=== PATIENT | male | born 1985 | race Caucasian/White ===

== ENCOUNTER 2024-12-02 20:02 | Emergency (ER) | payer OTHER, SELFPAY ==
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
[2024-12-02] VITALS (7 sets, daily range): BP systolic 162–185; BP diastolic 101–108; PULSE 120–133; RESP 18–28; TEMP 36.8–36.9; O2SAT 95–100; BMI 27.7
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
--- OUTSIDE RECORDS SUMMARY | 2024-12-02 20:15 | XMS_ITS | Encounter Summary ---
Author Organization [place] [address] Care Team Providers Care Cleaner And Presser Name Role Phone Augustus Hernandez MD Unavailable [phone] Augustus Hernandez MD Primary Care Provider [phone] Reason for Visit * Reason Onset Date Comments Refill 10/04/2024 omeprazole (PRIL OSEC) 20 mg Oral Capsule, Delayed Release(E.C.) Encounter Details Date Type Department Care Team (Late st Contact Info) Description 10/04/2024 Telephone [facility] [place] [address] [phone] Augustus Hernandez MD [facility] [place] [phone] Refill (omeprazole (PRILOSEC) 20 mg Oral Capsule, Delayed Release(E.C.)) Social History Tobacco Use Types Packs/Day Years [...] on file documented as of this encounter Functional Status * Is the person deaf or does he/she have serious difficulty hearing? Answer Date of Assessment Author No 07/01/2020 8:18 AM EDT Jordy Obrien, WAFER CUTTER * Is the person blind or does [...] Jordy Obrien CMA documented in this encounter Ordered Prescriptions Prescription Sig Dispense Quantity Refills Last Filled Start Date End Date omeprazole (PRILOSEC) 20 mg Oral Capsule, Delayed Release(E.C.) Take 1 Capsule by mouth daily. 90 Capsule 3 10/04/2024 documented in this encounter Miscellaneous Notes * Telephone Encounter - Salvatore Silva - 10/04/2024 9:54 AM EDT Select the most appropriate reason for this telephone message: Medication Refill Who is requesting the refill: Patient Medication(s)Name/Dosage/Frequency: Disp Refills Start End omeprazole (PRILOSEC) 20 mg Oral Capsule, Delayed Release(E.C.) 90 Capsule 3 07/30/2023 -- Sig: TAKE 1 CAPSULE BY MOUTH EVERY DAY Did patient contact the pharmacy first: No How many days left on hand: 2 Future appt date w/ prescribing provider: 10/25 Pharmacy & Location: [facility] Method of Communication: Phone Call Additional Information: N/A documented in this encounter Plan of Treatment Upcoming Encounters Date Type Department Care Team (Late st Contact Info) Description 12/25/2024 10:00 AM EDT Office Visit [facility] [address] [place] [address] [place] [place], [place] [phone] Augustus Hernandez MD [address] [place] [address] [place] [phone] documented as of this encounter Goals Goal Patient Goal Type Associated Problems Recent Progress Patient-Stated? Author Blood Pressure < 140/90 Blood Pressure 105/70(2024 12:54 PM EDT) No Ginny Malave, RMA Maintain a healthy diet, exercise regularly and maintain an ideal body weight General No Candice Wright documented as of this encounter Visit Diagnoses Not on filedocumented in this encounter Discontinued Medications Medication Sig Discontinue Reason Start Date End Da te omeprazole (PRILOSEC) 20 mg Oral Capsule, Delayed Release(E.C.) TAKE 1 CAPSULE BY MOUTH EVERY DAY Reorder 07/30/2023 10/04/2024 documented as of this encounter Care Teams Cleaner And Presser Relationship Specialty Start Date End Date Augustus Hernandez MD [address] [place] [address] [place] [phone] PCP - General Family Medicine 09/03/11 Augustus Hernandez MD [address] [place] [address] [place] [phone] Family Medicine 08/21/11 documented as of this encounter
--- OUTSIDE RECORDS SUMMARY | 2024-12-02 20:15 | XMS_ITS | Encounter Summary ---
Author Organization [place] [address] Care Team Providers Care Bail Bonding Agent Name Role Phone Augustus Hernandez MD Unavailable [phone] Augustus Hernandez MD Primary Care Provider [phone] Reason for Visit * Reason Onset Date Comments Results 10/26/2024 Seeking lab resu lts Other 10/26/2024 Urine culture re sults Encounter Details Date Type Department Care Team (Late st Contact Info) Description 10/26/2024 Telephone [facility] [address] [place] [phone] Augustus Hernandez MD [address] [place] [phone] Results (Seeking lab results ); Other (Urine culture results) Social History Tobacco Use Types Packs/Day Years [...] No 07/01/2020 8:18 AM EDT Jordy Obrien, POURER CRANE LADLE * Is the person blind or does he/she have serious difficulty seeing even when wearing glasses? Answer Date of Assessment Author No 07/01/2020 8:18 AM EDT Jordy Obrien, POURER CRANE LADLE * Does this person have serious difficulty walking or climbing stairs? Answer Date of Assessment Author No 07/01/2020 8:18 AM EDT Jordy Obrien POURER CRANE LADLE * Does this person have difficulty dressing or bathing? Answer Date of Assessment Author No 07/01/2020 8:18 AM EDT Jordy Obrien, POURER CRANE LADLE * Because of a physical, mental or emotional condition, does this person have difficulty doing errands alone such as visiting a doctor's office or shopping? Answer Date of Assessment Author No 07/01/2020 8:18 AM EDT Jordy Obrien, POURER CRANE LADLE documented as of this encounter Mental Status * Because of a physical, mental or emotional condition, does this person have serious difficulty concentrating, remembering or making decisions? Answer Entry Date Author No 07/01/2020 8:18 AM EDT Jordy Obrien, POURER CRANE LADLE documented in this encounter Miscellaneous Notes * Telephone Encounter - Sahara Blandon MA - 10/30/2024 3:00 PM EDT Please advise, thank you * Telephone Encounter - Candice Arambula MA - 10/30/2024 2:33 PM EDT Select the most appropriate reason for this telephone message: Other Who is calling (name & relationship to patient if not the patient): Patient What is needed OR why are they calling: Wanting to know if the final result is back? When is this needed by: today Where does this information need to go: Dr Hernandez Return Method of Communication: Phone Call Additional information:N/A * Telephone Encounter - Augustus Hernandez MD - 10/26/2024 1:04 PM EDT pending * Telephone Encounter - Meredith Houser RMA - 10/26/2024 11:48 AM EDT Please advise * Telephone Encounter - Georgiana Lange NICOLLE - 10/26/2024 11:47 AM EDT Select the most appropriate reason for this telephone message: Test Result(s) Purpose of call: Patient seeking results Type of test: Lab Date of test: 10/25/24 Who ordered the test: Dr Hernandez Where was test performed: [facility] Method of Communication: Phone Call Additional Information: N/A documented in this encounter Plan of Treatment Upcoming Encounters Date Type Department Care Team (Late st Contact Info) Description 12/25/2024 10:00 AM EDT Office Visit [facility] [address] [place] [address] [place] [phone] Augustus Hernandez MD [address] [place] [address] [place] [phone] documented as of this encounter Goals Goal Patient Goal Type Associated Problems Recent Progress Patient-Stated? Author Blood Pressure < 140/90 Blood Pressure 105/70(2024 12:54 PM EDT) No Ginny Malave RMA Maintain a healthy diet, exercise regularly and maintain an ideal body weight General No Candice Wright documented as of this encounter Visit Diagnoses Not on filedocumented in this encounter Care Teams Bail Bonding Agent Relationship Specialty Start Date End Date Augustus Hernandez MD [address] [place] [address] [place] [phone] PCP - General Family Medicine 09/03/11 Augustus Hernandez MD [address] [place] [address] [place] [phone] Family Medicine 08/21/11 documented as of this encounter
--- OUTSIDE RECORDS SUMMARY | 2024-12-02 20:15 | XMS_ITS | Encounter Summary ---
Author Organization [place] [address] Care Team Providers Care Bottom Crane Operator Name Role Phone Augustus Hernandez MD Unavailable [phone] Augustus Hernandez MD Primary Care Provider [phone] Reason for Visit * Reason Comments Medication Refill Encounter Details Date Type Department Care Team (Late st Contact Info) Description 11/16/2024 Refill [facility] [place] [phone] Augustus Hernandez MD [address] [facility] [place] [phone] Medication Refill Social History Tobacco Use Types Packs/Day Years [...] Date Author No 07/01/2020 8:18 AM EDT Lam Obrien CMA documented in this encounter Miscellaneous Notes * Telephone Encounter - Susan Pena CPhT - 11/17/2024 12:23 PM EDT sertraline - Refill requested too soon. Refill denied. Last sent on 09/25/2024 for a 100 day supply with 0 refills. Pt notified via [employer] if active. documented in this encounter Plan of Treatment Upcoming Encounters Date Type Department Care Team (Late st Contact Info) Description 12/25/2024 10:00 AM EDT Office Visit [facility] [address] [place] [phone] Augustus Hernandez MD [address] [place] [phone] documented as of this encounter Goals Goal Patient Goal Type Associated Problems Recent Progress Patient-Stated? Author Blood Pressure < 140/90 Blood Pressure 105/70(2024 12:54 PM EDT) No Ginny Malave, RMA Maintain a healthy diet, exercise regularly and maintain an ideal body weight General No Candice Wright documented as of this encounter Visit Diagnoses Diagnosis Masturbation Other and unspecified special symptom or syndrome, not elsewhere classified documented in this encounter Care Teams Bottom Crane Operator Relationship Specialty Start Date End Date Augustus Hernandez MD [address] [place] [phone] PCP - General Family Medicine 09/03/11 Augustus Heranndez MD [address] [place] [phone] Family Medicine 08/21/11 documented as of this encounter
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
--- OUTSIDE RECORDS SUMMARY | 2024-12-02 20:15 | XMS_ITS | Encounter Summary ---
Author Organization [place] [address] Care Team Providers Care Car Pusher Name Role Phone Augustus Hernandez MD Unavailable [phone] Augustus Hernandez MD Primary Care Provider [phone] Reason for Visit * Reason Onset Date Comments Results 10/31/2024 All labs 10/25/24 Encounter Details Date Type Department Care Team (Late st Contact Info) Description 10/31/2024 Results Follow-Up [facility] [address] [place] [address] Augustus Hernandez MD [address] [facility] [place] [address] COMPLIANCE PANEL, URINE Social History Tobacco Use Types Packs/Day Years [...] of Assessment Author No 07/01/2020 8:18 AM Jordy Sotomayor CMA * Is the person blind or does he/she have serious difficulty seeing even when wearing glasses? Answer Date of Assessment Author No 07/01/2020 8:18 AM Jordy Sotomayor CMA * Does this person have serious [...] No 07/01/2020 8:18 AM EDT Jordy Obrien HEARING AIDE TECHNICIAN documented as of this encounter Mental Status * Because of a physical, mental or emotional condition, does this person have serious difficulty concentrating, remembering or making decisions? Answer Entry Date Author No 07/01/2020 8:18 AM EDT Jordy Obrien CMA documented in this encounter Miscellaneous Notes * Telephone Encounter - Stacia Peterson LPN - 10/31/2024 9:06 AM EDT Select the most appropriate reason for this telephone message: Patient Calling for Results Patient called for results on Lab COMPLIANCE PANEL Which Provider ordered the test? Augustus Hernandez MD Date of test: 10/25/24 Advised patient of: normal result. Patient Instructions/ Questions: n/a Medications Ordered/Pended (if yes, list medication): N/A Medications/Orders Needed (if yes, list orders): N/A Pharmacy Location Verified: No Other: Please put in the patient results note that pt is aware of the following results Augustus Hernandez MD 10/31/2024 7:38 AM EDT [place] documented in this encounter Plan of Treatment Upcoming Encounters Date Type Department Care Team (Late st Contact Info) Description 12/25/2024 10:00 AM EDT Office Visit [facility] [address] [place] [phone] Augustus Hernandez MD [address] [place] [phone] documented as of this encounter Goals Goal Patient Goal Type Associated Problems Recent Progress Patient-Stated? Author Blood Pressure < 140/90 Blood Pressure 105/70(2024 12:54 PM EDT) No Ginny Malave, NICOLLE Maintain a healthy diet, exercise regularly and maintain an ideal body weight General No Candice Wright documented as of this encounter Visit Diagnoses Not on filedocumented in this encounter Care Teams Car Pusher Relationship Specialty Start Date End Date Augustus Hernandez MD [address] [facility] [place] [phone] PCP - General Family Medicine 09/03/11 Augustus Hernandez MD [address] [place] [address] [place] [phone] Family Medicine 08/21/11 documented as of this encounter
--- OUTSIDE RECORDS SUMMARY | 2024-12-02 20:15 | XMS_ITS | Encounter Summary ---
Author Organization [place] [address] Care Team Providers Care Transition Mgr Rn Name Role Phone Augustus Hernandez MD Unavailable [phone] Augustus Hernandez MD Primary Care Provider [phone] Reason for Visit * Reason Onset Date Comments Refill 11/15/2024 dextroamphetamin e-amphetamine (ADDERALL XR) 25 mg Oral Capsule, Sust. Release 24 hr Encounter Details Date Type Department Care Team (Late st Contact Info) Description 11/15/2024 Telephone [facility] [place] [place] [phone] Augustus Hernandez MD [address] [phone] Refill (dextroamphetamine-amph etamine (ADDERALL XR) 25 mg Oral Capsule, Sust. Release 24 hr) Social History Tobacco Use Types Packs/Day Years [...] No 07/01/2020 8:18 AM EDT Jordy Obrien, SUPERVISOR STAGE CARPENTRY * Is the person blind or does he/she have serious difficulty seeing even when wearing glasses? Answer Date of Assessment Author No 07/01/2020 8:18 AM EDJordy Gibbs CMA * Does this person have serious difficulty walking or climbing stairs? Answer Date of Assessment Author No 07/01/2020 8:18 AM EDJordy Gibbs CMA * Does this person have difficulty dressing or bathing? Answer Date of Assessment Author No 07/01/2020 8:18 AM EDT Jordy Obrien CMA * Because of a physical, mental or emotional condition, does this person have difficulty doing errands alone such as visiting a doctor's office or shopping? Answer Date of Assessment Author No 07/01/2020 8:18 AM EDJordy Gibbs CMA documented as of this encounter Mental Status * Because of a physical, mental or emotional condition, does this person have serious difficulty concentrating, remembering or making decisions? Answer Entry Date Author No 07/01/2020 8:18 AM Jordy Sotomayor CMA documented in this encounter Ordered Prescriptions Prescription Sig Dispense Quantity Refills Last Filled Start Date End Date dextroamphetamine-a mphetamine (ADDERALL XR) 25 mg Oral Capsule, Sust. Release 24 hrIndications:Atten tion deficit hyperactivity disorder (ADHD), unspecified ADHD type Take 1 Capsule by mouth daily for 30 days. 30 Capsule 11/15/2024 documented in this encounter Miscellaneous Notes * Telephone Encounter - Tonia Holland Baljit - 11/15/2024 8:30 AM EDT Last Office Visit reviewing controlled substances: 10/25/2024 Approved Ambien, Gabapentin, Lyrica, Butalbital = must be in last 6 months. All other controlled medications = must be in last 3 months. If visit is not up to date, please call and schedule appointment. Next appointment scheduled?: Yes LOGAN Last Reviewed by Prescriber: PDMP not electronically reviewed on this encounter. Date of last completed CSA if not included in flowsheet below: 03/30/2022 7:00 AM 05/04/2022 8:00 AM 06/29/2022 7:00 AM CONTROLLED SUBSTANCE LOGAN Reference Number [id number] [facility] Results as expected as expected as expected If had complete compliance panel: Last resulted compliance panel date: 10/29/2024 (If patient had partial drug screen or in-house drug screen, please document date of that below): * Telephone Encounter - Georgiana Lange RMA - 11/15/2024 8:08 AM EDT Select the most appropriate reason for this telephone message: Medication Refill Who is requesting the refill: Other Uncle Medication(s)Name/Dosage/Frequency: dextroamphetamine-amphetamine (ADDERALL XR) 25 mg Oral Capsule, Sust. Release 24 hr Did patient contact the pharmacy first: No How many days left on hand: today was last one Future appt date w/ prescribing provider: 12/25/24 Pharmacy & Location: [facility] Method of Communication: Phone Call Additional Information: N/A documented in this encounter Plan of Treatment Upcoming Encounters Date Type Department Care Team (Late st Contact Info) Description 12/25/2024 10:00 AM EDT Office Visit [facility] [address] [place] [phone] Augustus Hernandez MD [address] [facility] [place] [phone] documented as of this encounter Goals Goal Patient Goal Type Associated Problems Recent Progress Patient-Stated? Author Blood Pressure < 140/90 Blood Pressure 105/70(2024 12:54 PM EDT) No Ginny Malave RMA Maintain a healthy diet, exercise regularly and maintain an ideal body weight General No Candice Wright documented as of this encounter Visit Diagnoses Diagnosis Attention deficit hyperactivity disorder (ADHD), unspecified ADHD type documented in this encounter Discontinued Medications Medication Sig Discontinue Reason Start Date End Da te dextroamphetamine-ampheta mine (ADDERALL XR) 25 mg Oral Capsule, Sust. Release 24 hrIndications:Attention deficit hyperactivity disorder (ADHD), unspecified ADHD type Take 1 Capsule by mouth daily for 30 days. Reorder 10/17/2024 11/15/2024 documented as of this encounter Care Teams Transition Mgr Rn Relationship Specialty Start Date End Date Augustus Hernandez MD [address] [place] [phone] PCP - General Family Medicine 09/03/11 Augustus Hernandez MD [address] [place] [phone] Family Medicine 08/21/11 documented as of this encounter
--- OUTSIDE RECORDS SUMMARY | 2024-12-02 20:15 | XMS_ITS | Encounter Summary ---
Author Organization [place] [address] Care Team Providers Care Police Cadet Name Role Phone Augustus Hernandez MD Unavailable [phone] Augustus Hernandez MD Primary Care Provider [phone] Encounter Details Date Type Department Care Team (Late st Contact Info) Description 10/17/2024 Orders Only [facility] [address] [place] [phone] Issa Eisenberg MD [address] [place] [address] [place] [address] Attention deficit hyperactivity disorder (ADHD), unspecified ADHD type (Primary Dx) Social History Tobacco Use Types Packs/Day Years [...] Entry Date Author No 07/01/2020 8:18 AM EDJordy Gibbs CMA documented in this encounter Ordered Prescriptions Prescription Sig Dispense Quantity Refills Last Filled Start Date End Date dextroamphetamine-a mphetamine (ADDERALL XR) 25 mg Oral Capsule, Sust. Release 24 hrIndications:Atten tion deficit hyperactivity disorder (ADHD), unspecified ADHD type Take 1 Capsule by mouth daily for 30 days. 30 Capsule 10/17/2024 documented in this encounter Plan of Treatment Upcoming Encounters Date Type Department Care Team (Late st Contact Info) Description 12/25/2024 10:00 AM EDT Office Visit [facility] [address] [place] [phone] Augustus Hernandez MD [address] [facility] [place] [phone] documented as of this encounter Goals Goal Patient Goal Type Associated Problems Recent Progress Patient-Stated? Author Blood Pressure < 140/90 Blood Pressure 105/70(2024 12:54 PM EDT) No Ginny Malave, LATONIAA Maintain a healthy diet, exercise regularly and maintain an ideal body weight General No Candice Wright documented as of this encounter Visit Diagnoses Diagnosis Attention deficit hyperactivity disorder (ADHD), unspecified ADHD type- Primary documented in this encounter Discontinued Medications Medication Sig Discontinue Reason Start Date End Da te dextroamphetamine-amphet amine (ADDERALL XR) 25 mg Oral Capsule, Sust. Release 24 hr Take 1 Capsule by mouth daily for 30 days. Reorder 09/18/2024 10/17/2024 documented as of this encounter Care Teams Police Cadet Relationship Specialty Start Date End Date Augustus Hernandez MD [address] [place] [phone] PCP - General Family Medicine 09/03/11 Augustus Hernandez MD [address] [place] [address] Family Medicine 08/21/11 documented as of this encounter
--- OUTSIDE RECORDS SUMMARY | 2024-12-02 20:15 | XMS_ITS | Encounter Summary ---
Author Organization [place] [address] Care Team Providers Care Transportation Refrigeration Technician Name Role Phone Augustus Hernandez MD Unavailable [phone] Augustus Hernandez MD Primary Care Provider [phone] Reason for Visit * Reason Onset Date Comments Refill 10/17/2024 Adderall Encounter Details Date Type Department Care Team (Late st Contact Info) Description 10/17/2024 Telephone [facility] [place] [address] [place] [phone] Augustus Hernandez MD [address] [facility] [place] [phone] Refill (Adderall ) Social History Tobacco Use Types Packs/Day Years [...] encounter Miscellaneous Notes * Telephone Encounter - Issa Eisenberg MD - 10/17/2024 9:27 AM EDT Refill sent * Telephone Encounter - Sahara Blandon MA - 10/17/2024 9:21 AM EDT Last Office Visit reviewing controlled substances: 07/19/2024 Approved Ambien, Gabapentin, Lyrica, Butalbital = must be in last 6 months. All other controlled medications = must be in last 3 months. If visit is not up to date, please call and schedule appointment. Next appointment scheduled?: Yes LOGAN Last Reviewed by Prescriber: PDMP not electronically reviewed on this encounter. Date of last completed CSA if not included in flowsheet below: 02/19/2017 03/30/2022 7:00 AM 05/04/2022 8:00 AM 06/29/2022 7:00 AM CONTROLLED SUBSTANCE LOGAN Reference Number [id number] LOGAN Results as expected as expected as expected If had complete compliance panel: 07/01/2023 Last resulted compliance panel date: 07/03/2023 (If patient had partial drug screen or in-house drug screen, please document date of that below): * Telephone Encounter - Lev aBrnett RMA - 10/17/2024 9:18 AM EDT Select the most appropriate reason for this telephone message: Medication Refill Who is requesting the refill: Other Jose Medication(s)Name/Dosage/Frequency: Disp Refills Start End dextroamphetamine-amphetamine (ADDERALL XR) 25 mg Oral Capsule, Sust. Release 24 hr 30 Capsule 0 09/18/2024 10/18/2024 Sig - Route: Take 1 Capsule by mouth daily for 30 days. - Oral Sent to pharmacy as: dextroamphetamine-amphetamine ER 25 mg 24hr capsule,extend release (Adderall XR) Earliest Fill Date: 09/18/2024 Did patient contact the pharmacy first: No How many days left on hand: 1 cap left Future appt date w/ prescribing provider: 10/25/24 Pharmacy & Location: [id number] [place] [address] [address] [place], [place] [phone] [[id number]] Return Method of Communication: N/A Additional Information: N/A documented in this encounter Plan of Treatment Upcoming Encounters Date Type Department Care Team (Late st Contact Info) Description 12/25/2024 10:00 AM EDT Office Visit [facility] [address] [place] [phone] Augustus Hernandez MD [address] [place] [phone] documented as of this [...] on filedocumented in this encounter Care Teams Transportation Refrigeration Technician Relationship Specialty Start Date End Date Augustus Hernandez MD [address] [place] [phone] PCP - General Family Medicine 09/03/11 Augustus Hernandez MD [address] [place] [phone] Family Medicine 08/21/11 documented as of this encounter
[2024-12-02] MEDS: SULFA/TRIMETHOPRIM 1 TABLET 1 EACH PO (20:51)
== END 2024-12-02 20:56 | disposition home or self-care (01) ==
PROVIDERS: Emergency Provider Student in an Organized Health Care Education/Training Program; PCP Family Medicine
DX: L03.116 Cellulitis of left lower limb (principal)
CPT/HCPCS: 99283